=== PATIENT | female | born 1995 | race Caucasian/White ===

== ENCOUNTER 2019-10-07 15:08 | Outpatient (CLI) | payer BC, SELFPAY ==
--- NOTE | ~2019-10-07 | US_ITS ---
EXAMINATION: US OB /maternal detail DATE: 10/07/2019 16:32 INDICATION: survey TECHNIQUE: Multiple obstetric sonographic images performed. FINDINGS: No prior studies for comparison. There is a single living fetus in variable presentation. The placenta is posterior with placenta pre via. Amniotic fluid volume is normal. cardiac activity and movement is noted with a heart rate of 157 beats per minute. Unable to visualized 3 vessel cord and ventricular outflow tracts with survey. The following fe aamir anatomy was identified as normal: 4 chamber heart cord insertion kidneys urinary bladder stomach spine diaphragm ventricles cisterna magna cerebellum The following biometric data were obtained: BPD: 46mm corresponds to gestational age 20 weeks 0 days. Head circumference: 173 mm corresponds to gestational age 19 weeks 6 days. Abdominal circumference: 156 mm corresponds to gestational age 20 weeks 5 days. Femur length: 33 mm corresponds to gestational age 20 weeks 2 days. Head circumference to abdominal circumference ratio: 1.11 (normal range for expected gestational age is 1.07-1.25). Estimated weight: 357 grams +/- 54 grams using Hadlock method. IMPRESSION: 1: Single living intrauterine with an estimated gestational age of 20weeks 2days by current ultrasound measurements, with an EDC of 02/22/2020 in variable presentation. 2. Survey limited for evaluation of three-vessel cord and ventricular outflow tracts. Recommend att ention to these structures on subsequent examination. Remainder of the survey is unremarkable. 3: Placenta previa. Reviewed, dictated and finalized at location A. [facility] DEL[employer]ERY OFFICER IMPRESSION: 1: Single living intrauterine with an estimated gestational age of 20 weeks 2days by current ultrasound measurements, with an EDC of 02/22/2020 in va riable presentation. 2. Survey limited for evaluation of three-vessel cord and ventricular outflow tracts. Recommend attention to these structures on subsequent examination. Rem ainder of the survey is unremarkable. 3: Placenta previa.
== END 2019-10-07 15:09 | disposition home or self-care (01) ==
LOC: ANHIMG 15:12
DX: O44.02 Complete placenta previa NOS or without hemorrhage, second trimester (principal); Z3A.20 20 weeks gestation of pregnancy
CPT/HCPCS: 76805